=== PATIENT | female | born 1955 | race Caucasian/White ===

== ENCOUNTER → 2023-07-28 09:57 | Outpatient (BNVA) | payer MEDICARE, SELFPAY | PROVIDERS: PCP Family Medicine; Visit Provider Family Medicine | DX: M19.90 Unspecified osteoarthritis, unspecified site (principal) | CPT/HCPCS: 80053; 84439; 84443; 85025; 85651 ==

== ENCOUNTER → 2023-08-26 10:04 | Outpatient (BNVA) | payer MEDICARE, SELFPAY | PROVIDERS: PCP Family Medicine; Visit Provider Anesthesiology Pain Medicine | DX: M54.16 Radiculopathy, lumbar region (principal); G89.29 Other chronic pain | CPT/HCPCS: 99204 ==

== ENCOUNTER → 2023-09-07 11:13 | Outpatient (BNVA) | payer MEDICARE, SELFPAY | PROVIDERS: PCP Family Medicine; Referring Provider Family Medicine; Visit Provider Student in an Organized Health Care Education/Training Program | DX: M17.12 Unilateral primary osteoarthritis, left knee | CPT/HCPCS: 73560; 73565; 99204 ==

== ENCOUNTER 2023-09-21 08:29 | Outpatient (CLI) | payer MEDICARE, SELFPAY ==
--- NOTE | 2023-09-21 08:45 | MR_ITS ---
WS: [id number] MRI LUMBAR SPINE NONCONTRAST TECHNIQUE: Sagittal T1, T2 and STIR imaging. Axial T1 and T2 imaging. CLINICAL INFORMATION: M54.16 - Radiculopathy, lumbar region COMPARISON: None. FINDINGS: Exaggeration of the normal lumbar lordosis. Pedicle screw fixation L3-L5. Interbody fusion graft L4-5 . Grade 1 anterolisthesis L3 on L4 and L4 on L5 worse at L4-5. Spinal canal decompression with taisha ctomy defects L3-4. L1-L2: Slight retrolisthesis. Mild annular bulging. Slight narrowing of the subarticular recess bilat erally. Moderate facet arthropathy. Foramen are patent. L2-L3: Slight anterolisthesis. Central disc bulging with moderate central canal stenosis. Narrowing o f the subarticular recess bilaterally. LEFT to RIGHT narrowing of the thecal sac. Moderate facet arth ropathy. Moderate LEFT greater than RIGHT foraminal narrowing. L3-L4: Pedicle screw fixation. Mild annular bulging. Mild LEFT and no significant RIGHT foraminal lucas rowing. Spinal canal is patent. L4-L5: Pedicle screw fixation with interbody fusion graft. Mild LEFT and no significant RIGHT foramin al narrowing. Spinal canal has been decompressed. Moderate facet arthropathy. L5-S1: Mild disc bulging. Mild facet arthropathy. Spinal canal and foramen are patent. Visualized pelvic bony structures: Normal. Paravertebral soft tissues: Normal. Incidental Tarlov cyst in the sacrum Mild central canal stenosis in the cervical spine thread singer imaging C4-C6. IMPRESSION: 1. Pedicle screw fixation L3-L5 with interbody fusion graft L4-5. Grade 1 anterolisthesis L2 on L3 L 3 on L4 and L4 on L5 worse at L4-5. 2. Decompressive laminectomy defects L3 and L4. 3. Central disc protrusion at L2-L3 with moderate central canal stenosis and crowding of the cauda e quina nerve rootlets. LEFT to RIGHT narrowing of the thecal sac with impingement subarticular recess. Moderate bilateral foraminal narrowing with impingement on the exiting L2 nerve roots bilaterally. 4. Spinal canal is patent at L3-L4 and L4-L5 with decompressive laminectomies. 5. Mild LEFT L3-4 and mild LEFT L4-5 bony foraminal narrowing. 6. Mild disc bulge L5-S1 with slight contact of the traversing S1 nerve roots.
== END 2023-09-21 08:30 | disposition home or self-care (01) ==
LOC: RAD 08:32
PROVIDERS: PCP Family Medicine; Visit Provider Anesthesiology Pain Medicine
DX: M51.16 Intervertebral disc disorders with radiculopathy, lumbar region (principal); Z98.1 Arthrodesis status; M51.37 Other intervertebral disc degeneration, lumbosacral region; M48.061 Spinal stenosis, lumbar region without neurogenic claudication
CPT/HCPCS: 72148

== ENCOUNTER → 2023-09-27 09:47 | Outpatient (BNVA) | payer MEDICARE, SELFPAY | PROVIDERS: PCP Family Medicine; Visit Provider Anesthesiology Pain Medicine | DX: G89.29 Other chronic pain; M43.16 Spondylolisthesis, lumbar region; M51.26 Other intervertebral disc displacement, lumbar region; M48.061 Spinal stenosis, lumbar region without neurogenic claudication | CPT/HCPCS: 99214 ==

== ENCOUNTER → 2023-10-07 14:24 | Outpatient (BNVA) | payer MEDICARE, SELFPAY | PROVIDERS: PCP Family Medicine; Visit Provider Anesthesiology Pain Medicine | DX: M54.16 Radiculopathy, lumbar region (principal); G89.29 Other chronic pain | CPT/HCPCS: 64483; 64484; J1100; J3490 ==

== ENCOUNTER → 2023-10-19 15:17 | Outpatient (BNVA) | payer MEDICARE, SELFPAY | PROVIDERS: PCP Family Medicine; Visit Provider Student in an Organized Health Care Education/Training Program | DX: M17.12 Unilateral primary osteoarthritis, left knee (principal) | CPT/HCPCS: 20610; 99213; J7318 ==

== ENCOUNTER → 2023-11-02 08:47 | Outpatient (BNVA) | payer MEDICARE, SELFPAY | PROVIDERS: PCP Family Medicine; Visit Provider Anesthesiology Pain Medicine | DX: G89.29 Other chronic pain; M43.16 Spondylolisthesis, lumbar region; M51.26 Other intervertebral disc displacement, lumbar region; M48.061 Spinal stenosis, lumbar region without neurogenic claudication | CPT/HCPCS: 99214 ==

== ENCOUNTER → 2024-09-12 09:23 | Outpatient (BNVA) | payer MEDICARE, SELFPAY | PROVIDERS: PCP Family Medicine; Referring Provider Family Medicine; Visit Provider Anesthesiology Pain Medicine | DX: M54.9 Dorsalgia, unspecified (principal); G89.29 Other chronic pain | CPT/HCPCS: 99214 ==

== ENCOUNTER → 2024-09-19 14:38 | Outpatient (BNVA) | payer MEDICARE, SELFPAY | PROVIDERS: PCP Family Medicine; Visit Provider Anesthesiology Pain Medicine | DX: M79.18 Myalgia, other site (principal); M54.9 Dorsalgia, unspecified; G89.29 Other chronic pain; Z87.891 Personal history of nicotine dependence | CPT/HCPCS: 20553; 99214; J1010; J3490 ==

== ENCOUNTER 2024-09-28 13:35 | Outpatient (CLI) | payer MEDICARE, SELFPAY ==
--- NOTE | 2024-09-28 13:45 | MR_ITS ---
WS: [id number] MRI LUMBAR SPINE NONCONTRAST TECHNIQUE: Sagittal T1, T2 and STIR imaging. Axial T1 and T2 imaging. CLINICAL INFORMATION: M54.16 - Radiculopathy, lumbar region COMPARISON: MRI 09/21/2023 FINDINGS: Exaggeration of the normal lumbar lordosis. Pedicle screw fixation L3-L5. Grade 1 anterolisthesis L2 on L3 appears progressed compared to previous. Grade 1 anterolisthesis L3-4 and L4-5. Laminectomy defects L3-4 and L4-5. L1-L2: Mild annular bulging. Narrowing of the subarticular recess bilaterally. Mild facet arthropathy. Mild RIGHT foraminal narrowing. L2-L3: Progressed grade 1 anterolisthesis. Severe central canal stenosis. Advanced facet arthropathy. Severe LEFT and moderate RIGHT foraminal narrowing. L3-L4: Mild annular bulging. Laminectomy defects. Spinal canal and foramen are patent. L4-L5: Grade 1 anterolisthesis. Mild LEFT bony foraminal narrowing. Spinal canal and RIGHT foramen are patent. L5-S1: Mild disc osteophyte ridging. Mild facet arthropathy. Spinal canal and foramen are patent. Visualized pelvic bony structures: Normal. Paravertebral soft tissues: Normal. MR/MR lumbar spine wo con* [id number] IMPRESSION: 1. Grade 1 anterolisthesis L2 on L3 is progressed compared to previous with se darling central canal stenosis at this level. 2. Stable anterolisthesis L3 on L4 and L4 on L5 with laminectomy defects and s nathan canal decompression. 3. Mild central canal stenosis L1-2 is similar to previous. 4. Advanced facet arthropathy L2-3. Severe LEFT and moderate RIGHT L2-3 forami nal narrowing appears slightly progressed. 5. Mild LEFT L4-5 foraminal narrowing appears stable.
== END 2024-09-28 13:36 | disposition home or self-care (01) ==
PROVIDERS: PCP Family Medicine; Visit Provider Anesthesiology Pain Medicine
DX: M54.16 Radiculopathy, lumbar region (principal); M43.16 Spondylolisthesis, lumbar region; M48.061 Spinal stenosis, lumbar region without neurogenic claudication; M96.89 Other intraoperative and postprocedural complications and disorders of the musculoskeletal system; R93.7 Abnormal findings on diagnostic imaging of other parts of musculoskeletal system; M47.896 Other spondylosis, lumbar region; Z98.890 Other specified postprocedural states; M51.369 Other intervertebral disc degeneration, lumbar region without mention of lumbar back pain or lower extremity pain; M25.78 Osteophyte, vertebrae; M47.897 Other spondylosis, lumbosacral region
CPT/HCPCS: 72148

== ENCOUNTER → 2024-10-16 10:49 | Outpatient (BNVA) | payer MEDICARE, SELFPAY | PROVIDERS: PCP Family Medicine; Visit Provider Anesthesiology Pain Medicine | DX: M54.9 Dorsalgia, unspecified (principal); G89.29 Other chronic pain | CPT/HCPCS: 99214 ==

== ENCOUNTER → 2025-01-16 09:55 | Outpatient (BNVA) | payer MEDICARE, SELFPAY | PROVIDERS: PCP Family Medicine; Visit Provider Anesthesiology Pain Medicine | DX: M54.9 Dorsalgia, unspecified (principal); G89.29 Other chronic pain | CPT/HCPCS: 99214 ==

== ENCOUNTER → 2025-01-30 14:34 | Outpatient (BNVA) | payer MEDICARE, SELFPAY | PROVIDERS: PCP Family Medicine; Visit Provider Anesthesiology Pain Medicine | DX: M54.16 Radiculopathy, lumbar region (principal); M54.9 Dorsalgia, unspecified; G89.29 Other chronic pain | CPT/HCPCS: 64483; 64484; J1100; J3490; J9999 ==

== ENCOUNTER → 2025-02-19 08:15 | Outpatient (BNVA) | payer MEDICARE, SELFPAY | PROVIDERS: PCP Family Medicine; Visit Provider Anesthesiology Pain Medicine | DX: M54.9 Dorsalgia, unspecified (principal); G89.29 Other chronic pain | CPT/HCPCS: 99214 ==

== ENCOUNTER 2025-04-02 10:38 | Outpatient (CLI) | payer MEDICARE, SELFPAY ==
--- NOTE | 2025-04-02 10:40 | MM_ITS ---
WS: [id number] VIEWS: MLO and CC views both breasts. 3D digital tomosynthesis is also included in this exam. Comparison made with prior exam of 05/18/2016, 03/08/2020, 11/24/2022.. Findings: There are scattered areas of fibroglandular density. No sign of suspicious mass, tumor calcification or architectural distortion. MM/MM scr BI tomosynthesis [id number] Impression: BI-RADS: 2 - Benign. FOLLOW-UP: 1 Year Follow-up This mammogram was also analyzed by the Computer Aided Detection System R2 [employer].
== END 2025-04-02 10:39 | disposition home or self-care (01) ==
LOC: RAD 10:39
PROVIDERS: PCP Family Medicine; Visit Provider Family Medicine
DX: Z12.31 Encounter for screening mammogram for malignant neoplasm of breast (principal); R92.323 Mammographic fibroglandular density, bilateral breasts
CPT/HCPCS: 77063; 77067

== ENCOUNTER → 2025-05-22 09:41 | Outpatient (BNVA) | payer MEDICARE, SELFPAY | PROVIDERS: PCP Family Medicine; Visit Provider Anesthesiology Pain Medicine | DX: M54.9 Dorsalgia, unspecified (principal); G89.29 Other chronic pain | CPT/HCPCS: 99214 ==